=== PATIENT | male | born 1960 ===

== ENCOUNTER 2021-02-19 09:14 | Emergency (ER) | payer OTHER ==
[2021-02-19] MEDS ORDERED: Sodium Chloride 0.9% 1,000 ML IV ONE (09:44)
--- NOTE | 2021-02-19 09:48 | EDM.PDOC ---
ED HPI GENERAL MEDICAL PROBLEM - General Chief Complaint: Gastrointestinal Problem Stated Complaint: CANT HAVE A BM Time Seen by Provider: 02/19/21 09:39 Source of Information: Reports: Patient History Limitations: Reports: No Limitations - History of Present Illness INITIAL COMMENTS - FREE TEXT/NARRATIVE: HISTORY AND PHYSICAL: History of present illness: Patient is a 60-year-old male who presents to the emergency room with complaints of right-sided abdominal and flank pain post fall. Patient states 5 days ago he had fallen to the ground, mechanical fall due to Parkinson's. He states he did hit the left side of his cheek and somehow his right hip and back. Denies any LOC with fall. Since this time he has had right-sided abdominal and right flank pain. States when he tries to have a bowel movement he is only getting a smear on the toilet paper, does feel constipated. Patient denies any fever, chills, headache, change in vision, syncope or near syncope. Denies any shortness of breath or cough. Denies any nausea, vomiting, diarrhea or dysuria. Has not noted any blood in urine or stool. Denies any testicular pain, redness or swelling. Patient has been eating and drinking appropriately. No recent travel or sick contacts. Patient's daughter has accompanied him. She states that he has been on 2 medications for his Parkinson's. The carbidopa/levodopa made patient too drowsy so he stopped taking this medication. Patient never refilled his Pramipexole. Patient did have an appointment yesterday with Dr. London although failed to make this appointment. Review of systems: As per history of present illness and below otherwise all systems reviewed and negative. Past medical history: As per history of present illness and as reviewed below otherwise noncon tributory. Surgical history: As per history of present illness and as reviewed below otherwise noncontributory. Social history: See social history for further information Family history: As per history of present illness and as reviewed below otherwise noncontributory. Physical exam: General: Well developed and well nourished 60 year old male. Alert and orientated x 3. Nontoxic in appearance and in no acute distress. Vital signs are stable and have been reviewed by me. Nursing notes were reviewed. HEENT: Nontender, healing bruise under the left orbit. Normocephalic, pupils equal and reactive bilaterally, negative for conjunctival pallor or scleral icterus, mucous membranes moist, TMs normal bilaterally, throat clear, neck supple, nontender, trachea midline. No drooling or trismus noted. No meningeal signs. No hot potato voice noted. Lungs: Clear to auscultation bilaterally. No wheezes, rales, or rhonchi. Chest tender to the right distal/lateral chest wall. Normal work of breathing, no accessory muscles used. Heart: S1S2, regular rate and rhythm without overt murmur, gallops, or rubs. No JVD. No peripheral edema Abdomen: Soft, nondistended, nontender. Normoactive bowel sounds. Negative for masses or costovertebral tenderness. C-spine/Back: No pinpoint vertebral tenderness upon palpation. No crepitus, step-offs or obvious deformities. Patient is ambulatory into the emergency room without difficulty or deficit. Denies any urinary or fecal incontinence. Denies any numbness, tingling or saddle paresthesia. No concerns of serious infection, fracture or cord compression, or cauda equina syndrome. Deep tendon reflexes brisk bilaterally. Skin: Healing bruise under the left orbit and right lateral hip. Remaining skin is intact, warm, dry. No lesions or rashes noted. Hematologic: No petechiae or purpra. Mucosa appropriate color and normal nail bed color and refill. Extremities: Ambulatory, history of Parkinson's with noted hand tremor, moves all extremities per self without difficulty or deficits, negative for cords or calf pain. Neurovascular unremarkable. Neuro: Awake, alert, oriented. Cranial nerves II through XII unremarkable. Cerebellum unremarkable. Motor and sensory unremarkable throughout. Exam nonfocal. Psychiatric: Mood and affect are appropriate. Normal thought process. Answering questions appropriately. Please note that the patient was seen and evaluated during the 2019 SARS-CoV-2 novel coronavirus pandemic period. Community viral transmission is ongoing at time of this encounter and the emergency department is operating under pandemic response procedures. Medical Decision Making: Patient is a 60-year-old male who presents to the emergency room with complaints of right sided trunk pain after fall 5 days ago. He states he has not been able to have a bowel movement and is concerned he is constipated. States when he goes to use the bathroom he only gets a smear on his toilet paper, states it is too painful to bear down and push. Denies any blood in stools. Patient does have a bruise around the left orbit, no impingement or pain with ocular movement. He denies any loss of consciousness, headaches or change in vision. Declines a head CT. Patient also has a bruise and tenderness of the right lateral chest wall/abdomen and flank. We will do lab work and CT of the abdomen and pelvis. 1230: Dr Valero is here for another patient. I did review this case, labs, physical findings and CT results with him. He states it is safe for this patient to be discharged to home and recommends an incentive spirometer. I have talked with the patient about today's findings, in addition to providing specific details for plan of care. I did offer to do an enema here to help with the constipation, he declines. He would prefer to take medication/enema at home. We will give a bottle of magnesium citrate and an enema for home with education. The daughter states that she will stay with him this evening while he is performing these to ensure results. We did demonstrate how to use the incentive spirometer with thorough education. Reassessment at the time of disposition demonstrates that the patient is in no acute distress. The patient is stable for discharge, counseling was provided and we discussed in great detail signs and symptoms that would prompt them to return to the Emergency Department. Medication, follow up and supportive care measures were reviewed and discussed. Voices understanding and is agreeable to plan of care. Denies any further questions or concerns at this time. Diagnostics: CBC, CMP, UA, CT abdomen and pelvis, lipase Therapeutics: IV fluid, enema, magnesium citrate Prescription: Gray Impression: Parkinson's Disease Medication non-compliance Rib fractures Pneumothorax, small Constipation Plan: 1. You were evaluated today on an emergent basis. Your CT scan shows fractures of the right rib cage with a small pneumothorax. Pneumothorax is a small collection of air between the lung and chest wall. Please use the incentive spirometer to help resolve this and prevent a pneumonia. Please do 6 to 8 breaths every 4 hours while awake over the next [address] scan also shows copious amounts of stool. When you get home please use the enema and drink half bottle to full bottle of the magnesium citrate. Make sure you are near a bathroom as this should cause you to clear out. After you have a satisfactory bowel movement it would be ideal to start taking MiraLAX, 1 capful once daily. 2. Tylenol and/or ibuprofen as needed for pain management. 3. Suddenly stopping your medications such as your Mirapex can cause symptoms such as fever, muscle stiffness, and confusion. Make sure you talk with Dr Kwan before suddenly stopping any of your medications. These should be weaned gradually to avoid undesirable symptoms.We encourage you to follow up with Dr Kwan in the next few days for re-evaluation and further care/management. 4. If your symptoms should worsen, new symptoms develop or any of the signs and symptoms we discussed should arise please return to the emergency room or call 911 (if needed). Definitive disposition and diagnosis as appropriate pending reevaluation and review of above. right ribs Pain Score (Numeric/FACES): 5 - Related Data Allergies Allergy/AdvReac Type Severity Reaction Status Date / Time No Known Allergies Allergy Verified 02/19/21 09:39 Home Meds: Home Meds Carbidopa/Levodopa [Carbidopa-Levo 25-100 MG ODT] 1 tab PO TID 02/19/21 [History] Hydrocodone/Acetaminophen [HYDROcodone-Acetaminophen 5-325 MG] 1 tab PO Q4HR PRN #15 tablet 02/19/21 [Rx] Pramipexole [Mirapex] 1 tab PO TID 02/19/21 [History] Past Medical History Neurological History: Reports: Parkinson's - Infectious Disease History Infectious Disease History: Reports: Chicken Pox, Novel Coronavirus Social & Family History - Family History Family Medical History: No Pertinent Family History - Tobacco Use Tobacco Use Status *Q: Never Tobacco User - Recreational Drug Use Recreational Drug Use: No ED ROS GENERAL - Review of Systems Review Of Systems: Comprehensive ROS is negative, except as noted in HPI. ED EXAM, GI/ABD - Physical Exam Exam: See Below (See dictation) Course - Vital Signs Last Recorded V/S: Last Vital Signs Temp 97.3 F 02/19/21 12:40 Pulse 68 02/19/21 12:40 Resp 16 02/19/21 12:40 BP 133/71 02/19/21 12:40 Pulse Ox 96 02/19/21 12:40 - Orders/Labs/Meds Orders: Active Orders 24 hr Category Date Time Status Enema [RC] ASDIRECTED Care 02/19/21 12:29 Ordered Incentive Spirometry [RT Incentive Spirometry] [RC] Care 02/19/21 12:30 Order ed ASDIRECTED Sodium Chloride 0.9% [Normal Saline] 1,000 ml Med 02/19/21 09:44 Active IV STAT Medication Orders Sodium Chloride (Normal Saline) 1,000 mls @ 150 mls/hr IV STAT ONE Stop: 02/19/21 16:23 Last Admin: 02/19/21 10:22 Dose: 150 mls/hr Documented by: CALLIE Labs: Laboratory Tests 02/19/21 02/19/21 02/19/21 Range/Units 10: 10:19 10:40 WBC 10.79 (4.0-11.0) K/uL RBC 5.08 (4.50-5.90) M/uL Hgb 15.7 (13.0-17.0) g/dL Hct 45.5 (38.0-50.0) % MCV 89.6 (80.0-98.0) fL MCH 30.9 (27.0-32.0) pg MCHC 34.5 (31.0-37.0) g/dL RDW Std Deviation 41.3 (28.0-62.0) fl RDW Coeff of Harleen 13 (11.0-15.0) % Plt Count 207 (150-400) K/uL MPV 10.20 (7.40-12.00) fL Neut % (Auto) 78.2 (48.0-80.0) % Lymph % (Auto) 10.4 L (16.0-40.0) % [place] % (Auto) 8.1 (0.0-15.0) % Eos % (Auto) 3.0 (0.0-7.0) % Baso % (Auto) 0.3 (0.0-1.5) % Neut # (Auto) 8.5 H (1.4-5.7) K/uL Lymph # (Auto) 1.1 (0.6-2.4) K/uL Oldham # (Auto) 0.9 H (0.0-0.8) K/uL Eos # (Auto) 0.3 (0.0-0.7) K/uL Baso # (Auto) 0.0 (0.0-0.1) K/uL Nucleated RBC % 0.0 /100WBC Nucleated RBCs # 0 K/uL Sodium 139 (136-148) mmol/L Potassium 4.4 (3.5-5.1) mmol/L Chloride 101 (98-107) mmol/L Carbon Dioxide 29.2 (21.0-32.0) mmol/L BUN 16 (7.0-18.0) mg/dL Creatinine 1.0 (0.8-1.3) mg/dL Est Cr Clr Drug Dosing 83.67 mL/min Estimated GFR (MDRD) > 60.0 ml/min Glucose 126 H (74-106) mg/dL Calcium 8.4 L (8.5-10.1) mg/dL Total Bilirubin 1.1 H (0.2-1.0) mg/dL AST 20 (15-37) IU/L ALT 24 (14-63) IU/L Alkaline Phosphatase 120 H (46-116) U/L Total Protein 7.1 (6.4-8.2) g/dL Albumin 3.4 (3.4-5.0) g/dL Globulin 3.7 (2.6-4.0) g/dL Albumin/Globulin Ratio 0.9 (0.9-1.6) Lipase 43 L (73-393) U/L Urine Color YELLOW Urine Appearance CLEAR Urine pH 5.5 (5.0-8.0) Ur Specific [place] >= 1.030 (1.001-1.035) Urine Protein NEGATIVE (NEGATIVE) mg/dL Urine Glucose (UA) NEGATIVE (NEGATIVE) mg/dL Urine Ketones NEGATIVE (NEGATIVE) mg/dL Urine Occult Blood NEGATIVE (NEGATIVE) Urine Nitrite NEGATIVE (NEGATIVE) Urine Bilirubin NEGATIVE (NEGATIVE) Urine Urobilinogen 0.2 (<2.0) EU/dL Ur Leukocyte Esterase NEGATIVE (NEGATIVE) Meds: Medications Generic Name Dose Route Start Last Admin Trade Name Freq PRN Reason Stop Dose Admin Sodium Chloride 1,000 mls @ 150 mls/hr 02/19/21 09:44 02/19/21 10:22 Normal Saline IV 02/19/21 16:23 150 mls/hr STAT ONE Administration Discontinued Medications Generic Name Dose Route Start Last Admin Trade Name Freq PRN Reason Stop Dose Admin Iopamidol 100 ml 02/19/21 11:19 02/19/21 11:20 Iopamidol 755 Mg/Ml 500 Ml Multipack Bottle IVPUSH 02/19/21 11:20 100 ml ONETIME STA Administration Magnesium Citrate 1 ml 02/19/21 12:29 02/19/21 12:40 Magnesium Citrate Solution 296 Ml Bottle PO 02/19/21 12:30 296 ml ONETIME ONE Administration Departure - Departure Time of Disposition: 12:34 Disposition: Home, Self-Care 01 Clinical Impression: Parkinson disease, Noncompliance with medication regimen Constipation Qualifiers: Constipation type: unspecified constipation type Qualified Code(s): K59.00 - Constipation, unspecified Ribs, multiple fractures Qualifiers: Encounter type: initial encounter Fracture type: closed Laterality: right Qualified Code(s): S22.41XA - Multiple fractures of ribs, right side, initial encounter for closed fracture Fall Qualifiers: Encounter type: initial encounter Qualified Code(s): W19.XXXA - Unspecified fall, initial encounter Pneumothorax Qualifiers: Pneumothorax type: traumatic Encounter type: initial encounter Qualified Code(s): S27.0XXA - Traumatic pneumothorax, initial encounter - Discharge Information Instructions: Constipation, Adult, [id number], Rib Fracture, [id number] Referrals: Dayday Brothers MD [Primary Care Provider] - Forms: ED Department Discharge Additional Instructions: The following information is given to patients seen in the emergency department who are being discharged to home. This information is to outline your options for follow-up care. We provide all patients seen in our emergency department with a follow-up referral. The need for follow-up, as well as the timing and circumstances, are variable depending upon the specifics of your emergency department visit. If you don't have a primary care physician on staff, we will provide you with a referral. We always advise you to contact your personal physician following an emergency department visit to inform them of the circumstance of the visit and for follow-up with them and/or the need for any referrals to a consulting specialist. The emergency department will also refer you to a specialist when appropriate. This referral assures that you have the opportunity for follow-up care with a specialist. All of these measure are taken in an effort to provide you with optimal care, which includes your follow-up. Under all circumstances we always encourage you to contact your private physician who remains a resource for coordinating your care. When calling for follow-up care, please make the office aware that this follow-up is from your recent emergency room visit. If for any reason you are refused follow-up, please contact the [facility] Emergency Department at and asked to speak to the emergency department charge nurse. [facility] [address] [place] [address] [facility] [address] [place] [id number] Thank you for choosing the [facility] emergency department in [place] for your medical needs today. It was a pleasure caring for you. Today you were seen in the emergency department for fall, rib fracture and constipation. 1. You were evaluated today on an emergent basis. Your CT scan shows fractures of the right rib cage with a small pneumothorax. Pneumothorax is a small collection of air between the lung and chest wall. Please use the incentive spirometer to help resolve this and prevent a pneumonia. Please do 6 to 8 breaths every 4 hours while awake over the next [address] scan also shows copious amounts of stool. When you get home please use the enema and drink half bottle to full bottle of the magnesium citrate. Make sure you are near a bathroom as this should cause you to clear out. After you have a satisfactory bowel movement it would be ideal to start taking MiraLAX, 1 capful once daily. 2. Tylenol and/or ibuprofen as needed for pain management. 3. Suddenly stopping your medications such as your Mirapex can cause symptoms such as fever, muscle stiffness, and confusion. Make sure you talk with Dr Kwan before suddenly stopping any of your medications. These should be weaned gradually to avoid undesirable symptoms.We encourage you to follow up with Dr Kwan in the next few days for re-evaluation and further care/management. 4. If your symptoms should worsen, new symptoms develop or any of the signs and symptoms we discussed should arise please return to the emergency room or call 911 (if needed). Sepsis Event Note (ED) - Evaluation Sepsis Screening Result: No Definite Risk - Focused Exam Vital Signs: Vital Signs Temp Pulse Resp BP Pulse Ox 02/19/21 12:40 97.3 F 68 16 133/71 96 02/19/21 09:36 97.1 F 78 18 132/80 94 L - My Orders Last 24 Hours: My Active Orders 02/19/21 09:44 Sodium Chloride 0.9% [Normal Saline] 1,000 ml IV STAT 02/19/21 12:29 Enema [RC] ASDIRECTED 02/19/21 12:30 Incentive Spirometry [RT Incentive Spirometry] [RC] ASDIRECTED - Assessment/Plan Last 24 Hours: My Active Orders 02/19/21 09:44 Sodium Chloride 0.9% [Normal Saline] 1,000 ml IV STAT 02/19/21 12:29 Enema [RC] ASDIRECTED 02/19/21 12:30 Incentive Spirometry [RT Incentive Spirometry] [RC] ASDIRECTED
[2021-02-19 10:59] LABS: BLOOD UREA NITROGEN,BUN 16 mg/dL (7.0-18.0); CARBON DIOXIDE,CO2 29.2 mmol/L (21.0-32.0); CHLORIDE,CL 101 mmol/L (98-107); GLUCOSE RANDOM 126 mg/dL (74-106); LIPASE 43 U/L (73-393); POTASSIUM,K 4.4 mmol/L (3.5-5.1); SODIUM,NA 139 mmol/L (136-148)
[2021-02-19] MEDS ORDERED: Iopamidol 755 MG/ML 500 ML Multipack Bottle IVPUSH STA (11:19)
--- NOTE | 2021-02-19 12:07 | CT ---
INDICATION: Patient fell about a week ago; right flank and abdominal pain post fall; constipation. Comparison: None. TECHNIQUE: CT abdomen and pelvis with intravenous contrast; coronal and sagittal reformats. FINDINGS: Fractures involving the right 9th, 10th and 11th posterior ribs with displacement. There is evidence of pleural effusion as well as subcutaneous emphysema involving the right upper posterior abdominal wall and right lower posterior chest wall. Small pneumothorax identified at the right lung base. Compression atelectasis right lung base secondary to splinting as well as pleural effusion. No pneumothorax identified on the left side. Normal size cardiac silhouette without any evidence of pericardial effusion .no focal hepatic or splenic pathology. No pancreatic pathology. Gallbladder is unremarkable. No adrenal pathology. No kidney stones or obstructive uropathy. No retroperitoneal lymphadenopathy. No evidence of abdominal or pelvic ascites. No pneumoperitoneum or intestinal obstruction. Copious amounts of retained stool identified in the colon. IMPRESSION: 1. Displaced fractures involving the right lower posterior rib cage with associated soft tissue contusion as well as right-sided pleural effusion and atelectasis. 2. Pneumothorax right chest. 3. Subcutaneous emphysema right posterior chest wall. 4. Suggest obtaining a dedicated CT chest for further assessment. 5. Copious amounts of retained stool identified in the colon . Please note that all CT scans at this facility use dose modulation, iterative reconstruction, and/or weight-based dosing when appropriate to reduce radiation dose to as low as reasonably achievable. Dictated by Remy Worrell MD @ 02/19/2021 12:06:22 PM (Electronically Signed)
[2021-02-19] MEDS ORDERED: Magnesium Citrate Solution 296 ML Bottle PO ONE (12:29)
== END 2021-02-19 12:55 | disposition home or self-care (01) ==
LOC: MW.ED 09:14
DX: S22.41XA Multiple fractures of ribs, right side, initial encounter for closed fracture (principal); S27.0XXA Traumatic pneumothorax, initial encounter; K59.00 Constipation, unspecified; G20 Parkinson's disease; Z91.19 Patient's noncompliance with other medical treatment and regimen; W18.39XA Other fall on same level, initial encounter
CPT/HCPCS: 36415; 74177; 80053; 81003; 83690; 85025; 99284; A9270; J7030; Q9967